=== PATIENT | male | born 1960 | race Caucasian/White ===

== ENCOUNTER 2024-01-12 23:37 | Emergency (ER) | payer OTHER, SELFPAY ==
[2024-01-12 23:46] VITALS: BP 125/86
--- NOTE | 2024-01-13 00:19 | ED.GENMED ---
History of Present Illness
General
Chief Complaint: Nose Bleed
Source: patient and family
Time Seen by Provider: 01/12/24 23:53
History of Present Illness
History of Present Illness:
34 yr old male who presents to the ED with L sided nosebleed, happening nearly every night for last 10 days. He initially noted that he accidentally picked a scab, and since then he has these shortlived (30 min or so) bleeds. Tonight, the bleeding
was more prolonged (athough it has stopped now). Pt denies hx of bleeding, bleeding elsewhere (ex. mouth, urine, stool, etc), dizziness, cp, sob, abd pain, f/c, etc.
Past History
Past History
ED Past Medical History: Psychiatric (Schizophrenia) and Other (Cardiomyopathy)
ED Past Surgical History: None
Social History
Tobacco: Former smoker
Alcohol: None
Drug: None
Living: with family
Phy Exam
Physical Exam
Physical Exam:
GENERAL: Alert , in no apparent distress
EYE: pupils equal and reactive
NECK: Supple, no significant adenopathy.
ENT: o/p clr, mmm. Nasal clamp in place. With removal, no active bleeding noted. dried blood at L nare. at L septum, there is area of blood that I suspect is source of lbeeding anteriorly.
CARDIAC: Regular rate and rhythm .
LUNGS: Clear breath sounds bilaterally, no acute respiratory distress, no wheezes/rales/rhonchi
ABDOMEN: Soft, without focal tenderness, no r/g, no cvat
NEUROLOGICAL: Alert and oriented, no focal neuro deficits
SKIN: Warm and dry, skin intact.
MUSCULOSKELETAL: No edema, well perfused.
PSYCH: Normal and appropriate interaction.
Course
Vital Signs
Initial and Last Documented VS:
Initial Vital Signs
Temp Pulse Resp BP Pulse Ox
97.8 F 75 16 125/86 98
01/12/24 23:46 01/12/24 23:46 01/12/24 23:46 01/12/24 23:46 01/12/24 23:46
Last Documented Vital Signs
Temp Pulse Resp BP Pulse Ox
97.8 F 75 16 125/86 98
01/12/24 23:46 01/12/24 23:46 01/12/24 23:46 01/12/24 23:46 01/12/24 23:46
Procedures
Nosebleed
Drug treatment: Lidocaine and Epinephrine
Treatment: local pressure applied and Silver nitrate cautery
Post treatment bleeding: none- good control
*Critical Care Note
Total Time (30-74mins, 75-104mins- exclusive of procedures): Not Applicable
Update Note
Update Note:
Patient presents to the Emergency Department with ___L sided nosebleed
Number and Complexity of Problems Addressed at the Encounter
� Chronic conditions affecting care:
� Acute Exacerbation and/or Progression of Chronic Illness:
� Differential Diagnosis includes: but not limtied to: ant nosebleed, post nosebleed, bleeding d/o, nasal polyp, nasal growth/cancer, etc etc.
Amount and/or Complexity of Data to be Reviewed and Analyzed
� I performed an independent evaluation of and my interpretation is:
EKG:
CT:
Xrays:
Laboratory Studies:
Other:
� Review of other/old records reveals:
� Clinical information was obtained by an independent historian: Sister who is bedside
� Prescriptions/Medications Considered but not given:
� Further testing considered but not performed:
Risk of Complications and/or Morbidity or Mortality of Patient Management
� Social determinants of health affecting care:
� Discussion with other providers (PCP, Hospitalists, Consultants, etc):
� Escalation of care including admission/observation vs risk of discharge considered: 12:37 AM status post cautery, no further bleeding. Patient advised outpatient ENT follow-up and given nasal clamp and precautions if bleeding
was to recur. Stable for discharge.
ED Attending Note
-
Portions of this chart may have been created with voice recognition software.� Occasional wrong word or��sound alike� substitutions may have occurred due to the inherent limitations of voice recognition software.
Discharge Plan
Departure
Patient with high blood pressure during this ER visit?: Yes
Condition: Good
Discharge Problem:
Acute anterior epistaxis
Instructions: Nosebleeds (DC), BLOOD PRESSURE
Prescriptions:
No Action
carvedilol 12.5 MG tablet
12.5 mg PO BID
lisinopril [Prinivil] 5 MG tablet
10 mg PO DAILY
risperidone 1 MG tablet
3 mg PO HS
risperidone 1 MG tablet
1 mg PO AMHS
lorazepam 1 MG tablet
1 mg PO Q4HPRN PRN (Reason: Anxiety) Qty: 8 0RF
Referrals:
Nadeen Asher MD [Active] - Next open appointment
Activity Restrictions/Additional Instructions:
IF YOU DEVELOP PERSISTENT BLEEDING, DIZZINESS, CHEST PAIN, TROUBLE BREATHING, FEVER, SWELLING, OR OTHER WORRISOME SIGNS, GO TO THE ER IMMEDIATELY!
Interventions
Interventions:
*General Assessment Last Done: 01/12/24 23:46
*Neglect/Abuse Screening Last Done: 01/12/24 23:46
ED- Fall Risk Assessment Last Done: 01/12/24 23:46
*ED COVID-19 Vaccine History Last Done: 01/12/24 23:46
Discharge Date and Time
Print Language: IRANIAN
[2024-01-13 00:23] VITALS: BMI 33.5
[2024-01-13 00:40] VITALS: BP 117/77
--- NOTE | 2024-01-13 00:42 | ED.GENMED ---
History of Present Illness
General
Chief Complaint: Nose Bleed
Time Seen by Provider: 01/12/24 23:53
Past History
Past History
ED Past Medical History: Psychiatric (Schizophrenia) and Other (Cardiomyopathy)
ED Past Surgical History: None
Social History
Tobacco: Former smoker
Alcohol: None
Drug: None
Living: with family
Course
Vital Signs
Initial and Last Documented VS:
Initial Vital Signs
Temp Pulse Resp BP Pulse Ox
97.8 F 75 16 125/86 98
01/12/24 23:46 01/12/24 23:46 01/12/24 23:46 01/12/24 23:46 01/12/24 23:46
Last Documented Vital Signs
Temp Pulse Resp BP Pulse Ox
97.8 F 75 16 125/86 95
01/12/24 23:46 01/12/24 23:46 01/12/24 23:46 01/12/24 23:46 01/13/24 00:24
ED Attending Note
-
Portions of this chart may have been created with voice recognition software.� Occasional wrong word or��sound alike� substitutions may have occurred due to the inherent limitations of voice recognition software.
Discharge Plan
Departure
Patient Disposition: Home (Routine Discharge)
Date of Disposition: 01/13/24
Time of Disposition: 00:42
Patient with high blood pressure during this ER visit?: Yes
Condition: Good
Discharge Problem:
Acute anterior epistaxis
Instructions: Nosebleeds (DC), BLOOD PRESSURE
Prescriptions:
No Action
carvedilol 12.5 MG tablet
12.5 mg PO BID
lisinopril [Prinivil] 5 MG tablet
10 mg PO DAILY
risperidone 1 MG tablet
3 mg PO HS
risperidone 1 MG tablet
1 mg PO AMHS
lorazepam 1 MG tablet
1 mg PO Q4HPRN PRN (Reason: Anxiety) Qty: 8 0RF
Referrals:
Nadeen Asher MD [Active] - Next open appointment
Activity Restrictions/Additional Instructions:
IF YOU DEVELOP PERSISTENT BLEEDING, DIZZINESS, CHEST PAIN, TROUBLE BREATHING, FEVER, SWELLING, OR OTHER WORRISOME SIGNS, GO TO THE ER IMMEDIATELY!
Interventions
Interventions:
*General Assessment Last Done: 01/12/24 23:46
*Neglect/Abuse Screening Last Done: 01/12/24 23:46
ED- Fall Risk Assessment Last Done: 01/13/24 00:24
*ED COVID-19 Vaccine History Last Done: 01/12/24 23:46
ED-EENT Assessment Last Done: 01/13/24 00:25
Discharge Date and Time
Print Language: WOLOF
== END 2024-01-13 00:55 | disposition home or self-care (01) ==
LOC: EMR 23:37
PROVIDERS: EMERGENCY PHYSICIAN Emergency Medicine; FAMILY PHYSICIAN Family Medicine
DX: R04.0 Epistaxis (principal); R03.0 Elevated blood-pressure reading, without diagnosis of hypertension; Z87.891 Personal history of nicotine dependence
CPT/HCPCS: 99282; 30901

== ENCOUNTER 2024-01-15 11:59 | Emergency (ER) | payer OTHER, SELFPAY ==
[2024-01-15 12:03] VITALS: BP 144/83
[2024-01-15 14:00] VITALS: BP 137/88
--- NOTE | 2024-01-15 15:40 | ED.GENMED ---
History of Present Illness
General
Chief Complaint: Nose Bleed
Source: patient and spouse
Exam Limitations: none
Time Seen by Provider: 01/15/24 14:12
Nursing documentation reviewed up to this point in time: agreed with
History of Present Illness
History of Present Illness:
Patient seen in ED 3 days ago secondary to epistaxis, status post cauterization, returns to ED secondary to recurrent nosebleed while having breakfast this morning. Denies trauma. Denies nausea or vomiting. Denies sore throat. Denies throat
swelling sensation. Denies coughing. Denies fever. Denies recent illness. Patient does not take any blood thinning medications. Patient does have an appointment with an ENT physician in 9 days.
Past History
Past History
ED Past Medical History: Psychiatric (Schizophrenia) and Other (Cardiomyopathy)
ED Past Surgical History: None
Social History
Tobacco: Former smoker
Alcohol: None
Drug: None
Living: with family
Review of Systems
Review of Systems
Allergies reviewed?: Yes
All Other Systems: ROS reviewed and negative except as documented in HPI and ROS
Constitutional: Reports no symptoms
EENT: Reports other (nosebleed)
Respiratory: Reports no symptoms; Denies trouble breathing
ABD/GI: Reports no symptoms; Denies nausea or vomiting
Musculoskeletal: Reports no symptoms
Skin: Reports no symptoms
Neurological: Reports no symptoms
Phy Exam
Physical Exam
Physical Exam:
Physical Exam
General: no apparent distress, not acutely ill. afebrile
Head: nc/at. eomi
Neck: supple. no meningeal signs. normal posterior pharynx
Lungs: no acute respiratory distress. clear bilaterally
Abdomen: normal bowel sounds. not tender.
Neuro: alert and oriented. no focal neurological deficits
Skin: no rash
Psychiatric: well kept. interactive and cooperative
Extremities: no edema. no calf tenderness.
Course
Vital Signs
Initial and Last Documented VS:
Initial Vital Signs
Temp Pulse Resp BP Pulse Ox
98.1 F 85 16 144/83 98
01/15/24 12:03 01/15/24 12:03 01/15/24 12:03 01/15/24 12:03 01/15/24 12:03
Last Documented Vital Signs
Temp Pulse Resp BP Pulse Ox
98.1 F 71 18 118/93 96
01/15/24 12:03 01/15/24 16:00 01/15/24 16:00 01/15/24 16:00 01/15/24 16:00
Procedures
Nosebleed
Drug treatment: none
Treatment: local pressure applied and Epistat nasal catheter
Post treatment bleeding: none- good control
MDM/Problems Addressed
MDM/Problems Addressed:
Epistaxis well-controlled with anterior nasal packing. Patient observed for over 2 hours without any further bleeding. Patient remains hemodynamically stable, without any symptoms concerning for an acute blood loss, i.e.
dizziness/weakness/shortness of breath. Patient will be discharged home in stable condition to the care of his family, with recommendation to follow-up with ENT physician this week for reevaluation.
*Critical Care Note
Total Time (30-74mins, 75-104mins- exclusive of procedures): Not Applicable
ED Attending Note
-
Portions of this chart may have been created with voice recognition software.� Occasional wrong word or��sound alike� substitutions may have occurred due to the inherent limitations of voice recognition software.
Discharge Plan
Departure
Patient Disposition: Home (Routine Discharge)
Date of Disposition: 01/15/24
Time of Disposition: 16:15
Patient with high blood pressure during this ER visit?: Yes
Discharge Problem:
Epistaxis
Instructions: Nosebleeds (DC)
Prescriptions:
No Action
carvedilol 12.5 MG tablet
12.5 mg PO BID
lisinopril [Prinivil] 5 MG tablet
10 mg PO DAILY
risperidone 1 MG tablet
3 mg PO HS
risperidone 1 MG tablet
1 mg PO AMHS
lorazepam 1 MG tablet
1 mg PO Q4HPRN PRN (Reason: Anxiety) Qty: 8 0RF
Referrals:
Baldev Brothers DO [Family Provider] -
Nadeen Asher MD [Active] -
Activity Restrictions/Additional Instructions:
As discussed, please follow-up with referred ENT physician for reevaluation this week.
Interventions
Interventions:
*Risk Screen - Suicide Last Done: 01/15/24 16:51
*General Assessment Last Done: 01/15/24 13:18
*Neglect/Abuse Screening Last Done: 01/15/24 16:51
ED- Fall Risk Assessment Last Done: 01/15/24 16:00
*ED COVID-19 Vaccine History Last Done: 01/15/24 16:51
*Nursing Disposition Last Done: 01/15/24 16:51
ED-EENT Assessment Last Done: 01/15/24 14:31
Discharge Date and Time
Discharge Date/Time: 01/15/24 16:52
Print Language: MONGOLIAN
[2024-01-15 16:00] VITALS: BP 118/93
== END 2024-01-15 16:52 | disposition home or self-care (01) ==
LOC: EMR 11:59
PROVIDERS: EMERGENCY PHYSICIAN Emergency Medicine; FAMILY PHYSICIAN Family Medicine
DX: R04.0 Epistaxis (principal); R03.0 Elevated blood-pressure reading, without diagnosis of hypertension; Z87.891 Personal history of nicotine dependence
CPT/HCPCS: 99282; 30901